=== PATIENT | female | born 1985 ===

== ENCOUNTER 2023-03-19 12:06 | Emergency (ER) | payer MEDICAID ==
[~2023-03-19] VITALS: Ht 162.6 cm; Wt 75.0 kg
[2023-03-19 12:34] VITALS: BP 122/75; PULSE 101; RESP 16; TEMP 98.3
[2023-03-19 12:41] LABS: APPEARANCE,URINE CLEAR (CLEAR); BILIRUBIN,URINE NEGATIVE (NEGATIVE); GLUCOSE, URINE (UA) NEGATIVE (NEGATIVE); KETONES,URINE NEGATIVE (NEGATIVE); LEUKOCYTE ESTERASE ,URINE NEGATIVE (NEGATIVE); NITRATE,URINE NEGATIVE (NEGATIVE); OCCULT BLOOD,URINE TRACE (NEGATIVE); PH,URINE 5.5 (5.0-8.0); PROTEIN,URINE TRACE mg/dL (NEGATIVE); SPECIFIC GRAVITIY, URINE 1.036 (1.003-1.030); UROBILINOGEN,URINE <=1.0 mg/dL (<=1.0)
[2023-03-19 12:46] LABS: BACTERIA,URINE None Seen /HPF (None Seen); RBC,URINE 0-2 /HPF (0-2); SQUAMOUS EPITHELIAL CELL,UR Moderate /LPF (None Seen); WBC,URINE None Seen /HPF (0-5)
[2023-03-19] MEDS ORDERED: DOXY-354 PO (12:58)
[2023-03-19] MEDS ORDERED: FLUC150T61 PO (12:58)
[2023-03-19] MEDS ORDERED: AZITHROMYCIN 500 MG TABLET PO ONE (13:00)
[2023-03-19] MEDS ORDERED: LIDOCAINE/PF 1% 2 ML VIAL IM ONE (13:00)
[2023-03-19] MEDS ORDERED: CefTRIAXone SODIUM 1 GM/VIAL IM ONE (13:00)
== END 2023-03-19 14:06 | disposition home or self-care (01) ==
LOC: EMS 12:10
DX: A74.9 Chlamydial infection, unspecified (principal); F12.90 Cannabis use, unspecified, uncomplicated; Z90.49 Acquired absence of other specified parts of digestive tract; Z90.89 Acquired absence of other organs; Z98.890 Other specified postprocedural states
CPT/HCPCS: 99283; 81001; 96372; J0696; J3490; Q9967